=== PATIENT | female | born 1995 | race Caucasian/White ===

== ENCOUNTER 2022-05-26 07:42 | Emergency (ER) | payer OTHER, SELFPAY ==
--- NOTE | ~2022-05-26 | XR_ITS ---
XR shoulder LT min 2V DATE: 05/26/2022 08:18 INDICATION: Posterior left shoulder pain, limited range of motion. No known injury. TECHNIQUE: 4 views COMPARISON: None FINDINGS: No fracture, dislocation, periosteal reaction or bone destruction. Normal alignment at the acromioclavicular and glenohumeral joints. No abnormal soft tissue calcification. IMPRESSION: Negative Reviewed, dictated and finalized at location B. IMPRESSION: Negative
[2022-05-26 07:55] VITALS: BP 128/82; PULSE 93; RESP 20; TEMP 36.6; O2SAT 99
[2022-05-26] MEDS: IBUPROFEN 400 MG TABLET 800 MG PO (08:06)
--- NOTE | 2022-05-26 08:31 | ED.UPPEXIN ---
HPI - Extremity Injury (Upper) General Chief Complaint: Extremity Injury, Upper Stated Complaint: shoulder injury Time Seen by Provider: 05/26/22 07:47 Source: patient and RN notes reviewed Mode of arrival: ambulatory Limitations: no limitations History of Present Illness HPI narrative: This is a 26 year old female left hand dominant who presents for evaluation of left shoulder pain. She thinks she injured her shoulder on while working. 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 She has been having pain with lifting her left shoulder. Related Data Allergies Allergy/AdvReac Type Severity Reaction Status Date / Time No Known Allergies Allergy Verified 05/26/22 08:02 Review of Systems Review of Systems: All systems reviewed & are unremarkable except as noted in HPI and below PMFSH Past Medical History Medical History (Updated 05/26/22 @ 08:40 by Eva Holder MD) Patient denies medical problems Surgical History Surgical History (Updated 05/26/22 @ 08:36 by Eva Holder MD) No pertinent past surgical history Social History Social History (Updated 05/26/22 @ 08:36 by Eva Holder MD) Smoking status: Never smoker Exam Const: General: no acute distress and alert Orientation/consciousness: patient oriented x3 Limitations: no limitations HENMT: Head: normal to inspection Eyes: EOM: EOMs intact bilaterally Resp: Effort & Inspection: normal respiratory effort Skin: General skin exam: normal color Rashes: no rashes Wounds: no wounds Neuro: General: patient oriented x3, moves all extremities and CN's II-XI intact bilaterally Extrem: General: no clubbing, cyanosis or edema Other: pain with abduction of left shoulder, radial pulse present Psych: Mental Status: mental status grossly normal Affect: normal affect Attitude: cooperative Course Reevaluation(s) Reevaluation #1: I have discussed with patient that xray is unremarkable. I discussed she will need to follow up with PCP for possible PT and evaluation of pain does not resolve Date: 05/26/22 Time: 08:37 Vital Signs Vital signs: Vital Signs Temperature 97.8 F 05/26/22 07:55 Pulse Rate 93 05/26/22 07:55 Respiratory Rate 20 05/26/22 07:55 Blood Pressure 128/82 05/26/22 07:55 Pulse Oximetry 99 05/26/22 07:55 Oxygen Delivery Room Air 05/26/22 07:55 Temperature 97.9 F 05/26/22 09:07 Pulse Rate 92 05/26/22 09:07 Respiratory Rate 18 05/26/22 09:07 Blood Pressure 105/87 05/26/22 09:07 Pulse Oximetry 98 05/26/22 09:07 Oxygen Delivery Room Air 05/26/22 07:55 MDM - Extremity Injury (Upper) Imaging Data Radiologist's impression: ITS Impressions Shoulder X-Ray 05/26/22 08:20 IMPRESSION: Negative Discharge Plan Discharge Clinical Impression: Left shoulder strain Qualifiers: Encounter type: initial encounter Qualified Code(s): S46.912A - Strain of unspecified muscle, fascia and tendon at shoulder and upper arm level, left arm, initial encounter Patient Disposition: Home, Self-Care Condition: Stable Instructions: Antibiotic Form, How to Use a Sling (ED), Shoulder Pain (ED), Early Postoperative or Post Injury Shoulder Exercises (ED) Additional Instructions: Follow up with your primary care provider if you do not have improvement with your pain after 1 week. Prescriptions: New ibuprofen 800 mg tablet 800 mg PO TID PRN (Reason: pain) Qty: 20 0RF Follow-up/Referrals: Elia Bedoya M.D. [Primary Care Provider] -
[2022-05-26 09:07] VITALS: BP 105/87; PULSE 92; RESP 18; TEMP 36.6; O2SAT 98
== END 2022-05-26 09:09 | disposition home or self-care (01) ==
PROVIDERS: Emergency Provider General Practice; PCP Family Medicine
DX: S46.912A Strain of unspecified muscle, fascia and tendon at shoulder and upper arm level, left arm, initial encounter (principal); X50.3XXA Overexertion from repetitive movements, initial encounter
CPT/HCPCS: 73030; 99283; A4565; A9270

== ENCOUNTER 2022-06-25 06:33 | Emergency (ER) | payer OTHER, SELFPAY ==
[2022-06-25] VITALS (17 sets, daily range): BP systolic 114–129; BP diastolic 74–84; PULSE 78–100; RESP 17–18; TEMP 37; O2SAT 97–100
--- NOTE | ~2022-06-25 | CT_ITS ---
EXAMINATION: CT abdomen pelvis w con DATE: 06/25/2022 08:54 INDICATION: Right lower quadrant pain. Chills. Nausea and vomiting. TECHNIQUE: Computed tomography (CT) of the abdomen and pelvis was performed with 100 cc Omnipaque 350 intravenous contrast. The dose-length product was 1644.86 mGy-cm. Automated exposure control and ite rative reconstruction technique were employed. COMPARISON: None. FINDINGS: Lung bases are unremarkable. Heart size normal. No significant pleural or pericardial effus ion. No significant vascular abnormality. Small hiatal hernia. The liver, spleen, pancreas, adrenal g lands and kidneys are unremarkable. The appendix is normal. There are mildly increased number of ileo colic lymph nodes. No significant associated inflammatory changes. Nonobstructive bowel pattern. No a bnormal pelvic masses or fluid collections. No free air or free fluid. Small fat-containing umbilical hernia. IMPRESSION: 1. No acute abdominal abnormality. Normal appendix. Reviewed, dictated and finalized at location A.
--- NOTE | 2022-06-25 07:30 | ED.ABDPAIN ---
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 Chills. Related Data Allergies Allergy/AdvReac Type Severity Reaction Status Date / Time No Known Allergies Allergy Verified 05/26/22 08:02 Review of Systems Review of Systems: CONST: Chills HEENT: No sore throat C/V: No chest pain RESP: No cough GI: Reports abdominal pain, nausea : No dysuria. M/S: No joint pain. SKIN: No rash. NEURO: [No headache or focal numbness or weakness] PSYCH: [No depression] [facility] Past Medical History Medical History (Updated 06/25/22 @ 09:40 by Letitia Mcdaniels MD) Patient denies medical problems Surgical History Surgical History No pertinent past surgical history Social History Social History Smoking status: Never smoker Exam Narrative: EXAMINATION OF ORGAN SYSTEMS/BODY AREAS: Constitutional: Vital signs per nursing GENERAL: Appears slightly uncomfortable and anxious HEAD: Normal with no signs of head trauma. EYES: EOMI, conjunctiva normal ENT: Hearing grossly intact LUNGS: Nonlabored breathing. HEART: [Regular rate and rhythm] ABD: [Soft], minimally tender to palpation right lower quadrant EXT: Normal range of motion SKIN: [No rashes or lesions.] NEURO: [Alert and oriented x 3. No gross focal sensory or strength deficits.] PSYCH: Slightly anxious affect Course Vital Signs Vital signs: Vital Signs Temperature 98.6 F 06/25/22 06:36 Pulse Rate 100 06/25/22 06:36 Respiratory Rate 18 06/25/22 06:36 Blood Pressure 129/79 06/25/22 06:36 Pulse Oximetry 100 06/25/22 06:36 Oxygen Delivery Room Air 06/25/22 06:36 Temperature 98.6 F 06/25/22 06:36 Pulse Rate 100 06/25/22 06:36 Respiratory Rate 18 06/25/22 06:36 Blood Pressure 119/83 06/25/22 08:00 Pulse Oximetry 99 06/25/22 08:01 Oxygen Delivery Room Air 06/25/22 06:36 MDM - Abdominal Pain MDM Narrative Medical decision making narrative: Electronic medical record was reviewed. Patient presented to the ED with complaint of [abdominal pain RLQ radiating to back and nausea]. Vitals [were within acceptable limits]. Physical exam revealed soft abdomen, with minimal TTP RLQ. Based on the patient's history and physical exam, my differential includes but is not limited to [gastroenteritis, appendicitis, UTI, calculus], doubt ovarian torsion without severe pelvic pain. [IV access was established by nursing staff. Patient was given zofran, morphine]. CBC, BMP, lipase, LFTs, bilirubin and alk phos were obtained. Labs were pertinent for some calcium oxalate crystals on urine, otherwise negative. [Decision was made to obtain a CT-abdomen to evaluate for acute abdominal process. CT-abdomen per my, attending, and radiology interpretation is unremarkable for acute intra-abdominal process, no signs of hydronephrosis, cholecystitis, appendicitis, no concerning pelvic masses or free fluid.] On reevaluation, the patient states that they are feeling better. There were no witnessed episodes of vomiting in the emergency department. They are not complaining of any new abdominal pain. Repeat examination did not show any significant guarding or rebound. No new tenderness. At this time I do not feel there is any further emergent treatment to be provided. The patient was given strict return precautions, if they are to develop any worsening abdominal pain, vomiting, or blood in the vomit they are to return to the emergency department immediately. Patient verbally acknow
[2022-06-25] MEDS: MORPHINE SULFATE (*CRX) 4 MG/ML INJ IV PUSH (07:47)
[2022-06-25] MEDS: ONDANSETRON INJ 4 MG/2 ML VIAL IV PUSH (07:47)
[2022-06-25] MEDS: LACTATED RINGERS 1,000 ML 999 ML IV CONT (07:48)
[2022-06-25 07:49] LABS: Basophils Percent Auto 0.5 % (0.2-1.2); Eosinophils Absolute Auto 0.2 K/mm3 (0-0.3); Eosinophils Percent Auto 2.2 % (0-4.4); Hematocrit 40.5 % (37.0-47.0); Immature Granulocyte Absolute 0.02 K/mm3 (0.00-0.031); Immature Granulocyte Percent A 0.3 % (0-0.5); Lymphocytes Absolute Auto 2.55 K/mm3 (0.9-3.2); Lymphocytes Percent Auto 34.6 % (18.3-44.2); Mean Corpuscular HGB Conc 32.1 g/dl (32-36); Mean Corpuscular Hemoglobin 28.2 pg (26-34); Mean Corpuscular Volume 87.9 fl (80-100); Mean Platelet Volume 9.8 fl (7.4-10.4); Monocytes Absolute Auto 0.5 K/mm3 (0.1-0.6); Monocytes Percent Auto 6.8 % (2.6-8.5); Neutrophils Absolute Auto 4.1 K/mm3 (1.3-6.7); Neutrophils Percent Auto 55.6 % (45.5-73.1); Platelet Count Result 255 k/mm3 (150-375); Red Blood Count 4.61 M/mm3 (4.2-5.4); Red Cell Distribution Width 12.3 % (11.5-14.5); White Blood Count 7.4 K/mm3 (4.5-10.0)
[2022-06-25 08:01] LABS: Alanine Aminotransferase 24 U/L (6-35); Albumin Level 4.4 g/dL (3.5-5.1); Alkaline Phosphatase 102 U/L (38-126); Anion Gap 5 mmol/L (8-16); Aspartate Amino Transferase 28 U/L (14-36); Bilirubin,Total 0.6 mg/dL (0.2-1.3); Blood Urea Nitrogen 11 mg/dL (7-17); Calcium 8.8 mg/dL (8.4-10.2); Carbon Dioxide 29 mmol/L (22-30); Chloride 105 mmol/L (98-107); Estimated CRCL calculation 129 ml/min; Estimated Glomerular Filt Rate > 60; Glucose 93 mg/dL (65-110); Lipase 84 U/L (23-300); Potassium 4.2 mmol/L (3.4-5.0); Sodium 139 mmol/L (137-145)
[2022-06-25 08:30] LABS: Appearance Urine Cloudy (Clear); Bacteria Urine 2+ /hpf; Bilirubin Urine Negative (Negative); Blood Urine Negative (Negative); Calcium Oxalate Crystals Urine Present /hpf; Color Urine Yellow (Yellow); Glucose Urine UA Negative (Negative); Ketones Urine Trace mg/dL (Negative); Leukocyte Esterase Ur Negative LEU/UL (Negative); Mucus Urine Present /lpf; Nitrate Urine Negative (Negative); Non Pathogenic Casts 0-2; Protein Urine Trace mg/dL (Negative); RBC Urine 0-2 /hpf (0-2); Squamous Epithelial Cell Urine Moderate /hpf (Few); WBC Urine 0-5 /hpf
[2022-06-25 08:31] LABS: Add Urine Microscopic? YES; Specific Grav Ur 1.036 (1.001-1.035)
[2022-06-25] MEDS: KETOROLAC 15 MG/ML VIAL (*BKC) IV PUSH (09:31)
== END 2022-06-25 10:07 | disposition home or self-care (01) ==
PROVIDERS: Emergency Provider Emergency Medicine; PCP Family Medicine
DX: R10.31 Right lower quadrant pain (principal)
CPT/HCPCS: 36415; 74177; 80053; 81001; 81025; 83690; 85025; 96361; 96374; 96375; 99284; J1885; J2270; J2405; J7120; Q9967

== ENCOUNTER 2022-08-31 02:23 | Emergency (ER) | payer OTHER, SELFPAY ==
--- NOTE | ~2022-08-31 | US_ITS ---
Pelvic ultrasound. Clinical History: First trimester , evaluate for ectopic Technique: Realtime transabdominal scanning of the pelvis was performed. Color flow Doppler and Doppl er spectral analysis were performed. Findings: The uterus is anteverted, and contains an intrauterine gestation. [place]-rump length of 1.0 cm corresponds to an estimated gestational age of 7 weeks 1 day. heart rate is 134 bpm.. The right ovary measures 3.8 x 1.8 x 2.4 cm. No significant right ovarian or adnexal mass is seen. The left ovary is not visualized. No significant left ovarian or adnexal mass is seen. There is no evidence of free fluid in the cul de sac. Impression: Live intrauterine gestation with estimated gestational age of 7 weeks 1 day. heart rate is 134 bpm. Reviewed, dictated and finalized at [facility]. Impression: Live intrauterine gestation with estimated gestational age of 7 weeks 1 day. Fe ritesh heart rate is 134 bpm.
[2022-08-31 02:27] VITALS: BP 127/73; PULSE 89; RESP 18; TEMP 36.4; O2SAT 100
--- NOTE | 2022-08-31 02:50 | ED.GENADULT ---
HPI - General Adult General Chief complaint: Abdominal Pain Stated complaint: RLQ abd pain, 7 weeks Time Seen by Provider: 08/31/22 02:34 History of Present Illness HPI narrative: This is a 27-year-old presenting at 7 weeks gestation for right lower quadrant pain. 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 It is a dull pain that radiates to her back, 4/10 in intensity and constant. She has taken Tylenol with some relief. She says she experienced similar pain 2 months ago and it resolved after several days. Patient has had some nausea but denies fever, chills, vomiting, diarrhea, chest pain difficulty breathing, vaginal bleeding or irritation. No urinary symptoms. Related Data Allergies Allergy/AdvReac Type Severity Reaction Status Date / Time No Known Allergies Allergy Verified 05/26/22 08:02 [facility] Past Medical History Medical History Patient denies medical problems Surgical History Surgical History No pertinent past surgical history Social History Social History Smoking status: Never smoker Exam Narrative: APPEARANCE: No apparent distress. Head: atraumatic. EYES: EOMI, NOSE: Atraumatic NECK: Trachea midline RESPIRATORY: No increased rate of breathing CARDIOVASCULAR: RRR, ABDOMINAL: Obese, mild tenderness to palpation in the right lower quadrant, no guarding no rebound MUSCULOSKELETAl: No obvious deformities NEURO: Alert. Moving 4/4 extremities SKIN:: Warm, dry. Normal color PSYCHIATRIC: Normal affect Course Vital Signs Vital signs: Vital Signs Temperature 97.6 F 08/31/22 02:27 Pulse Rate 89 08/31/22 02:27 Respiratory Rate 18 08/31/22 02:27 Blood Pressure 127/73 08/31/22 02:27 Pulse Oximetry 100 08/31/22 02:27 Temperature 97.6 F 08/31/22 02:27 Pulse Rate 89 08/31/22 02:27 Respiratory Rate 18 08/31/22 02:27 Blood Pressure 127/73 08/31/22 02:27 Pulse Oximetry 100 08/31/22 02:27 Medical Decision Making MDM Narrative Medical decision making narrative: -Presentation: 27-year-old female presented 7 weeks with right lower quadrant pain. 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 At that time CT was performed which was negative for appendicitis. -Hx from independent Sources: None -Independent interpretation of studies: CBC normal. Metabolic panel normal. Urine not indicative of infection. ultrasound showed a intrauterine dated at 7 weeks 1 day with a heart rate of 134. no mention of his cyst on the right ovary that the patient was aware of. -Discussion of Management/Consultants: None -Dx tests considered but not ordered: CT abdomen pelvis to evaluate for appendicitis, patient is afebrile with no white count and has had pain similar to this in the past. Will take a watch and see approach and if the patient develops fevers or severe abdominal pain she should return immediately for re-evaluation. -Procedures: none -Interventions: 1000 mg Tylenol -Shared decision making / Disposition: Discharged with OBGYN follow-up. -RX Vital Signs Vital Signs: Vital Signs Temperature 97.6 F 08/31/22 02:27 Pulse Rate 89 08/31/22 02:27 Respiratory Rate 18 08/31/22 02:27 Blood Pressure 127/73 08/31/22 02:27 Pulse Oximetry 100 08/31/22 02:27 Temperature 97.6 F 08/31/22 02:27 Pulse Rate 89 08/31/22 02:27 Respiratory Rate 18 08/31/22 02:27 Blood Pressure 12
[2022-08-31 03:22] LABS: Basophils Percent Auto 0.4 % (0.2-1.2); Eosinophils Absolute Auto 0.1 K/mm3 (0-0.3); Eosinophils Percent Auto 1.7 % (0-4.4); Hemoglobin 12.6 g/dL (12.0-15.0); Immature Granulocyte Absolute 0.01 K/mm3 (0.00-0.031); Immature Granulocyte Percent A 0.1 % (0-0.5); Lymphocytes Absolute Auto 2.22 K/mm3 (0.9-3.2); Lymphocytes Percent Auto 31.2 % (18.3-44.2); Mean Corpuscular HGB Conc 30.7 g/dl (32-36); Mean Corpuscular Hemoglobin 27.9 pg (26-34); Mean Corpuscular Volume 90.7 fl (80-100); Mean Platelet Volume 10.3 fl (7.4-10.4); Monocytes Absolute Auto 0.6 K/mm3 (0.1-0.6); Neutrophils Absolute Auto 4.1 K/mm3 (1.3-6.7); Neutrophils Percent Auto 57.6 % (45.5-73.1); Platelet Count Result 255 k/mm3 (150-375); Red Blood Count 4.52 M/mm3 (4.2-5.4); Red Cell Distribution Width 12.5 % (11.5-14.5); White Blood Count 7.1 K/mm3 (4.5-10.0)
[2022-08-31 03:35] LABS: Appearance Urine Clear (Clear); Bacteria Urine None Seen /hpf; Bilirubin Urine Negative (Negative); Blood Urine Negative (Negative); Color Urine Yellow (Yellow); Glucose Urine UA Negative (Negative); Ketones Urine Negative (Negative); Leukocyte Esterase Ur Negative LEU/UL (Negative); Nitrate Urine Negative (Negative); Non Pathogenic Casts 0-2; Protein Urine Trace mg/dL (Negative); RBC Urine 0-2 /hpf (0-2); Squamous Epithelial Cell Urine Occasional /hpf (Few); WBC Urine 0-5 /hpf; pH Urine 5.5 (5.0-9.0)
[2022-08-31 03:37] LABS: Anion Gap 8 mmol/L (8-16); Blood Urea Nitrogen 11 mg/dL (7-17); Calcium 9.2 mg/dL (8.4-10.2); Carbon Dioxide 24 mmol/L (22-30); Chloride 104 mmol/L (98-107); Estimated CRCL calculation 150 ml/min; Estimated Glomerular Filt Rate > 60; Glucose 98 mg/dL (65-110); Potassium 3.9 mmol/L (3.4-5.0); Sodium 136 mmol/L (137-145)
[2022-08-31 03:41] LABS: Add Urine Microscopic? YES; Specific Grav Ur 1.039 (1.001-1.035)
[2022-08-31 04:02] LABS: Beta HCG Quantitative > 15000.00 mIU/ML
[2022-08-31 06:14] VITALS: BP 149/83; PULSE 87; RESP 14; O2SAT 100
== END 2022-08-31 06:17 | disposition home or self-care (01) ==
PROVIDERS: Emergency Provider Emergency Medicine; PCP Family Medicine
DX: O26.891 Other specified pregnancy related conditions, first trimester (principal); R10.31 Right lower quadrant pain; Z3A.01 Less than 8 weeks gestation of pregnancy
CPT/HCPCS: 36415; 76801; 80048; 81001; 81025; 84702; 85025; 86850; 86900; 86901; 99284

== ENCOUNTER 2022-10-22 05:42 | Observation (INO) | payer OTHER, SELFPAY ==
[2022-10-22] VITALS (41 sets, daily range): BP systolic 101–147; BP diastolic 48–90; PULSE 76–107; RESP 20–22; TEMP 36.5; O2SAT 95–100; BMI 44.9
--- NOTE | ~2022-10-22 | XR_ITS ---
EXAMINATION: XR chest 2V DATE: 10/22/2022 08:48 INDICATION: Right-sided chest and upper abdominal pain. TECHNIQUE: PA and lateral views of the chest were obtained. COMPARISON: Chest radiograph dated 02/03/2022 FINDINGS: The lungs remain clear with no focal airspace opacities, pulmonary edema, pleural effusion or pneumot horax. The cardiomediastinal silhouette is normal. Visualized bones and soft tissues are unremarkable . IMPRESSION: 1. No acute cardiopulmonary disease. Reviewed, dictated and finalized at location A.
--- NOTE | ~2022-10-22 | CT_ITS ---
EXAMINATION: CTA chest PE protocol DATE: 10/22/2022 10:55 INDICATION: Chest pain with inspiration. Right upper quadrant abdominal pain. 15 weeks . TECHNIQUE: Computed tomography angiography (CTA) of the chest was performed with 100 mL Omnipaque-350 intravenous contrast timed to evaluate the pulmonary arteries. Coronal maximum intensity projection 3D-reconstructions were created by the technologist. Automated exposure control and iterative reconst ruction technique were employed. The dose-length product was 871.45 mGy-cm. COMPARISON: Abdomen ultrasound 10/22/2022 FINDINGS: The lungs demonstrate mild atelectasis. No pleural effusion. The heart size is normal. No p ericardial effusion. There is a small sliding hiatal hernia. No pulmonary embolus. The gallbladder is distended, likely secondary to fasting. There is mild thoracic spondylosis. IMPRESSION: 1. No pulmonary embolus. 2. Small sliding hiatal hernia. Reviewed, dictated and finalized at location A.
--- NOTE | ~2022-10-22 | US_ITS ---
EXAMINATION: US renal BI DATE: 10/22/2022 15:04 INDICATION: RIGHT FLANK PAIN TECHNIQUE: Multiple grayscale and Doppler ultrasound images of the kidneys were obtained. COMPARISON: None. FINDINGS: The right kidney measures 8.7 x 4.7 x 5.3 cm. The left kidney measures 10.1 x 4.6 x 5.8 cm. The kidne ys demonstrate normal parenchymal echogenicity. There is no hydronephrosis. The bladder is normal. IMPRESSION: Unremarkable renal sonogram findings. Reviewed, dictated and finalized at location K.
--- NOTE | ~2022-10-22 | US_ITS ---
EXAMINATION: US abdomen limited DATE: 10/22/2022 07:47 INDICATION: Right flank pain. 15 weeks . TECHNIQUE: Multiple grayscale and Doppler ultrasound images of the abdomen were obtained. COMPARISON: CT abdomen and pelvis 06/25/2022 FINDINGS: The visualized portions of the head, body, and tail of the pancreas are normal. The liver i s normal without focal lesion. There is normal flow in main portal vein. The gallbladder is normal in size. No gallstones or gallbladder wall thickening. There is no sonographic Tamayo sign. The common duct is normal and measures 6 mm. IMPRESSION: 1. Normal right upper quadrant ultrasound. Reviewed, dictated and finalized at location A.
[2022-10-22 06:58] LABS: Basophils Percent Auto 0.4 % (0.2-1.2); Eosinophils Absolute Auto 0.2 K/mm3 (0-0.3); Eosinophils Percent Auto 2.1 % (0-4.4); Hemoglobin 13.2 g/dL (12.0-15.0); Immature Granulocyte Absolute 0.02 K/mm3 (0.00-0.031); Immature Granulocyte Percent A 0.2 % (0-0.5); Lymphocytes Absolute Auto 2.94 K/mm3 (0.9-3.2); Lymphocytes Percent Auto 31.8 % (18.3-44.2); Mean Corpuscular HGB Conc 31.4 g/dl (32-36); Mean Corpuscular Hemoglobin 27.9 pg (26-34); Mean Corpuscular Volume 88.8 fl (80-100); Mean Platelet Volume 10.1 fl (7.4-10.4); Monocytes Absolute Auto 0.7 K/mm3 (0.1-0.6); Monocytes Percent Auto 7.4 % (2.6-8.5); Neutrophils Absolute Auto 5.4 K/mm3 (1.3-6.7); Neutrophils Percent Auto 58.1 % (45.5-73.1); Platelet Count Result 258 k/mm3 (150-375); Red Blood Count 4.73 M/mm3 (4.2-5.4); Red Cell Distribution Width 12.6 % (11.5-14.5); White Blood Count 9.3 K/mm3 (4.5-10.0)
[2022-10-22 07:08] LABS: Alanine Aminotransferase 30 U/L (6-35); Alkaline Phosphatase 91 U/L (38-126); Anion Gap 6 mmol/L (8-16); Aspartate Amino Transferase 30 U/L (14-36); Bilirubin,Total 0.2 mg/dL (0.2-1.3); Blood Urea Nitrogen 9 mg/dL (7-17); Carbon Dioxide 25 mmol/L (22-30); Chloride 102 mmol/L (98-107); Estimated CRCL calculation 149 ml/min; Estimated Glomerular Filt Rate > 60; Glucose 91 mg/dL (65-110); Lipase 121 U/L (23-300); Potassium 4.4 mmol/L (3.4-5.0); Sodium 133 mmol/L (137-145)
--- NOTE | 2022-10-22 07:15 | PC.NURSE ---
Assumed care of patient from ESTRELLITA Garcia at this time.
--- NOTE | 2022-10-22 07:22 | PC.NURSE ---
Pt to US at this time. Will give meds when pt returns.
[2022-10-22 07:28] LABS: Appearance Urine Cloudy (Clear); Bacteria Urine Rare /hpf; Bilirubin Urine Negative (Negative); Blood Urine Negative (Negative); Color Urine Yellow (Yellow); Glucose Urine UA Negative (Negative); Ketones Urine Negative (Negative); Leukocyte Esterase Ur Negative LEU/UL (Negative); Nitrate Urine Negative (Negative); Non Pathogenic Casts 0-2; Protein Urine 1+ mg/dL (Negative); RBC Urine 0-2 /hpf (0-2); Specific Grav Ur 1.032 (1.001-1.035); Squamous Epithelial Cell Urine Moderate /hpf (Few); Urobilinogen Urine 0.2 mg/dL (<2.0); pH Urine 5.5 (5.0-9.0)
[2022-10-22 07:36] LABS: Add Urine Microscopic? YES
--- NOTE | 2022-10-22 07:52 | ED.ABDPAIN ---
HPI - Abdominal Pain General Chief Complaint: Abdominal Pain Stated Complaint: abd pain Time Seen by Provider: 10/22/22 07:01 Source: patient and RN notes reviewed Mode of arrival: ambulatory Limitations: no limitations History of Present Illness HPI narrative: This is a 27 year old female 15 weeks GA who presents for evaluation of right flank pain. She reports she ate [employer] around midnight and she developed pain at 1 am. She reports pain has been constant and worse with moving. She noticed severe pain when she was bending over. Her pain has been constant and sharp. She has no been able to take any medication for pain. She denies history gallstone or gallbladder disease. She denies any urinary complaints. She denies any issues with this . Her OB is located in [place]. Related Data Home Medications Medication Instructions Recorded Confirmed vit no.95-ferrous 1 tablet PO DAILY 10/22/22 10/22/22 fumarate 28 mg-folic acid 800 mcg tablet () Allergies Allergy/AdvReac Type Severity Reaction Status Date / Time No Known Allergies Allergy Verified 05/26/22 08:02 Review of Systems Constitutional: Constitutional: Denies weakness Cardiovascular: Cardiovascular: Denies syncope, Denies rapid heart rate, Denies irregular heart rhythm, Denies leg edema and Denies dyspnea Respiratory: Respiratory: Denies chest congestion, Denies hemoptysis, Denies excessive phlegm production and Denies dyspnea Gastrointestinal: Gastrointestinal: Reports abdominal pain, Denies hematochezia, Denies diarrhea and Denies vomiting Genitourinary: Genitourinary: Denies hematuria and Denies dysuria Musculoskeletal: Musculoskeletal: Denies joint swelling, Denies loss of height and Denies muscle weakness Neurologic: Denies syncope, Denies focal weakness and Denies weakness [facility] Past Medical History Medical History Patient denies medical problems Surgical History Surgical History No pertinent past surgical history Social History Social History Smoking status: Never smoker Exam Const: General: alert Nutritional Appearance: obese Orientation/consciousness: patient oriented x3 HENMT: Head: normal to inspection Eyes: EOM: EOMs intact bilaterally Neck: Neck: normal visual inspection Resp: Effort & Inspection: normal respiratory effort Auscultation: clear to auscultation bilaterally Cardio: Rate: regular rate Rhythm: regular rhythm GI: GI Palp: Yes Soft to palpation, Yes Tenderness to palpation present (GI) (right flank), No Guarding due to palpation present (GI) and No Rigid due to palpation Auscultation: normal bowel sounds Back/Spine/Pelvis: Back: no CVA tenderness Skin: General skin exam: normal color Rashes: no rashes Wounds: no wounds Neuro: General: patient oriented x3, moves all extremities and CN's II-XI intact bilaterally Extrem: General: normal to inspection Psych: Mental Status: mental status grossly normal Affect: normal affect Attitude: cooperative Course Reevaluation(s) Reevaluation #1: I discussed with patient d dimer elevated. This may be due to but given her pleuritic pain we should rule out PE. I discussed CTA vs VQ scan with higher radiation risk. She wants to get CTA given more detailed test. She understands risk. Date: 10/22/22 Time: 10:33 Reevaluation #2: PAtient reports her pain is better. I discussed that we have rule out PE, pneumonia, gallstones, cholecystitis pyelonephritis . She states she does not want to go home . I discussed I could send her home with pain medication but she states she would prefer to be admit to OB for pain control. Date: 10/22/22 Time: 12:35 Consultations Consultation #1: I spoke with Dr. Serra about patient case. He states patient ca
[2022-10-22] MEDS: SODIUM CHLORIDE 0.9% IV 1,000 ML 999 ML IV CONT (07:57)
[2022-10-22] MEDS: ONDANSETRON INJ 4 MG/2 ML VIAL IV PUSH (07:57)
[2022-10-22] MEDS: MORPHINE SULFATE (*CRX) 4 MG/ML INJ IV PUSH (07:58)
[2022-10-22 09:36] LABS: INR 0.9
[2022-10-22 09:37] LABS: Partial Thromboplastin Time 26.7 SECONDS (22.3-36.8)
[2022-10-22] MEDS: ACETAMINOPHEN 500 MG TABLET 1000 MG PO (09:41)
[2022-10-22] MEDS: MORPHINE SULFATE (*CRX) 4 MG/ML INJ 6 MG IV PUSH (09:42)
[2022-10-22 10:08] LABS: D Dimer 0.76 ug/mL (<0.48)
--- NOTE | 2022-10-22 14:04 | PC.NURSE ---
1330: RN unable to obtain heart tones with doppler at this time. 1400: Dr. Serra phoned in for update. RN reported patient's complaints of heartburn and pain in her right side (into rib cage) that is constant dull pain that becomes sharp during deep breaths and movement. Orders to give milk of magnesium PO, [place] 5 once, give patient a heating pad, and order a renal ultrasound.
[2022-10-22] MEDS: HYDROcodone/acetaminophen (*CRX) 5-325 MG TABLET 1 TAB PO (14:15)
[2022-10-22] MEDS: MAGNESIUM HYDROXIDE SUSP 30 ML UDC PO (14:15)
--- NOTE | 2022-10-22 15:25 | PC.NURSE ---
1520: FHT assessed. FHT baseline of 135 obtained by RN.
--- NOTE | 2022-10-22 15:29 | OBADM ---
This patient, Argelia Galan, admitted to the OB room OB [facility] for observation. Patient/family oriented to hospital policies and general routines including ID bracelet, bed and alarms, visiting hours, pain management, procedures, bathroom and other care routines, personal items, smoking policy, room service/diet, and visiting hours. Patient/Family are encouraged to report perceived risks to care and to ask questions if they do not understand what they are told or what they should do.
--- NOTE | 2022-10-22 15:39 | PC.NURSE ---
1314: Dr. Serra phoned in for status. RN informed OB of renal US results and patient's pain. OB ordered to obtain FHT via doppler and offer patient to go home with enough [place] 5 to get her through the weekend with instructions to call her OB in [place] on Tuesday. 1335: Patient states she does not want to go home without consulting with her , her is on his way to the hospital now. OB informed of patient's statement.
--- NOTE | 2022-10-22 17:30 | PC.NURSE ---
1659: Patient discharge is completed. Patient is waiting on ride home. 1730: RN went in to see if patient left yet. Patient was asleep in bed.
--- NOTE | 2022-10-25 14:48 | P.PNOB_ITS ---
OB - Triage/Final Diagnosis Visit Information Reason for evaluation: other ( right upper quadrant the musculoskeletal pain) Comments/Additional reasons for admission: I have assessed the risk for this patient, Argelia Galan, and determined that she would benefit from observation care. Evaluation Laboratory results: Laboratory Tests 10/22/22 10/22/22 06:40 07:17 WBC 9.3 RBC 4.73 Hgb 13.2 Hct 42.0 MCV 88.8 MCH 27.9 MCHC 31.4 L RDW 12.6 Plt Count 258 MPV 10.1 Immature Gran % (Auto) 0.2 Neut % (Auto) 58.1 Lymph % (Auto) 31.8 [place] % (Auto) 7.4 Eos % (Auto) 2.1 Baso % (Auto) 0.4 Lymph # (Auto) 2.94 [place] # (Auto) 0.7 H Eos # (Auto) 0.2 Baso # (Auto) 0.0 Abs Immat Gran (auto) 0.02 Absolute Neuts (auto) 5.4 Absolute Nucleated RBC 0.0 Nucleated RBC % 0.0 PT 12.0 INR 0.9 APTT 26.7 D-Dimer 0.76 H Sodium 133 L Potassium 4.4 Chloride 102 Carbon Dioxide 25 Anion Gap 6 L BUN 9 Creatinine 0.70 Estim Creat Clear Calc 149 Estimated GFR > 60 Glucose 91 Calcium 9.0 Total Bilirubin 0.2 AST 30 ALT 30 Alkaline Phosphatase 91 Total Protein 8.0 Albumin 4.0 Lipase 121 Urine Color Yellow Urine Appearance Cloudy H Urine pH 5.5 Ur Specific [place] 1.032 Urine Protein 1+ H Urine Glucose (UA) Negative Urine Ketones Negative Ur Blood (Man) Negative Urine Nitrate Negative Urine Bilirubin Negative Urine Urobilinogen 0.2 Leukocyte Esterase Rfl Negative Urine RBC 0-2 Urine WBC 6-10 H Ur Squamous Epith Cells Moderate Urine Bacteria Rare Urine Casts 0-2
== END 2022-10-22 17:37 | disposition home or self-care (01) ==
LOC: ANHED 07:01 → ANHOBPP 13:10
PROVIDERS: Emergency Medicine; Admitting Provider Obstetrics & Gynecology; Emergency Provider General Practice; PCP Family Medicine; Visit Provider Obstetrics & Gynecology
DX: O26.899 Other specified pregnancy related conditions, unspecified trimester (principal); R10.11 Right upper quadrant pain; O99.612 Diseases of the digestive system complicating pregnancy, second trimester; K44.9 Diaphragmatic hernia without obstruction or gangrene; R79.1 Abnormal coagulation profile; Z3A.15 15 weeks gestation of pregnancy
CPT/HCPCS: 36415; 71046; 71275; 76705; 76775; 80053; 81001; 83690; 85025; 85380; 85610; 85730; 87086; 87088; 96361; 96374; 96375; 96376; 99285; A9270; G0378; G0379; J2270; J2405; J7030; Q9967

== ENCOUNTER 2023-01-05 07:57 | Outpatient (CLI) | payer OTHER, SELFPAY ==
--- NOTE | ~2023-01-05 | NM_ITS ---
EXAMINATION: NM hepatobiliary wo pharm DATE: 01/05/2023 11:30 INDICATION: Chronic right upper quadrant abdominal pain. COMPARISON: Ultrasound 01/05/2023 TECHNIQUE: 3.1 mCi Tc-99m mebrofenin (Choletec) was administered intravenously. Scintigraphic images of the abdomen were obtained for one hour. Then, the patient drank 8 oz Ensure, and imaging was cont inued for 60 minutes. FINDINGS: There is normal clearance of radiotracer from the blood pool. There is homogeneous tracer u ptake by the liver. Activity progresses to the bowel and gallbladder. Gallbladder ejection fraction (GBEF) was 42%. Note that with this technique, normal GBEF >= 33%. IMPRESSION: 1. Normal hepatobiliary scintigraphy. Reviewed, dictated and finalized at location E.
--- NOTE | ~2023-01-05 | US_ITS ---
US abdomen limited INDICATION: Chronic right upper quadrant pain PROCEDURE: Realtime right upper abdominal ultrasound. COMPARISON: No prior studies for comparison. FINDINGS: The pancreas is normal without focal mass or pancreatic ductal dilation. Liver echotexture is increased, consistent with fatty infiltration. There is normal directional flow in the portal ve in. The gallbladder is normal without stones, gallbladder wall thickening or pericholecystic fluid. Comm on bile duct measures 6.9 mm. No sonographic Tamayo's sign. IMPRESSION: 1: Hepatic steatosis. Reviewed, dictated and finalized at location B. IMPRESSION: 1: Hepatic steatosis.
== END 2023-01-05 07:58 | disposition home or self-care (01) ==
PROVIDERS: PCP Family Medicine
DX: R10.11 Right upper quadrant pain (principal); K76.0 Fatty (change of) liver, not elsewhere classified
CPT/HCPCS: 76705; 78226; A9537

== ENCOUNTER 2023-01-14 00:24 | Observation (INO) | payer OTHER, SELFPAY ==
[2023-01-14 00:49] VITALS: BP 121/65; PULSE 95
[2023-01-14 00:51] VITALS: BMI 45.6
[2023-01-14 00:57] VITALS: BP 121/65; PULSE 92; RESP 18; TEMP 36.3; O2SAT 99
[2023-01-14 01:10] VITALS: BP 121/65; PULSE 92; RESP 18; TEMP 36.3; O2SAT 99
--- NOTE | 2023-01-14 01:17 | OBADM ---
This patient, Argelia Galan, admitted to the OB room [facility] for observation. Patient/family oriented to hospital policies and general routines including ID bracelet, bed and alarms, visiting hours, pain management, procedures, bathroom and other care routines, personal items, smoking policy, room service/diet, and visiting hours. Patient/Family are encouraged to report perceived risks to care and to ask questions if they do not understand what they are told or what they should do.
[2023-01-14 02:59] LABS: Appearance Urine Cloudy (Clear); Bacteria Urine None Seen /hpf; Bilirubin Urine Negative (Negative); Blood Urine Negative (Negative); Color Urine Yellow (Yellow); Glucose Urine UA Negative (Negative); Ketones Urine Negative (Negative); Leukocyte Esterase Ur Trace LEU/UL (Negative); Nitrate Urine Negative (Negative); Non Pathogenic Casts 0-2; Protein Urine Trace mg/dL (Negative); Specific Grav Ur 1.026 (1.001-1.035); Squamous Epithelial Cell Urine Few /hpf (Few); Uric Acid Crystals Urine Present /hpf; Urobilinogen Urine 0.2 mg/dL (<2.0); pH Urine 5.5 (5.0-9.0)
[2023-01-14 03:04] LABS: Add Urine Microscopic? YES
--- NOTE | 2023-02-13 20:58 | PM.OBTRLD ---
OB - Triage/Final Diagnosis Visit Information Comments/Additional reasons for admission: I have assessed the risk for this patient, Argelia Galan, and determined that she would benefit from observation care. Evaluation Laboratory results: Laboratory Tests 01/14/23 01:53 Urine Color Yellow Urine Appearance Cloudy H Urine pH 5.5 Ur Specific [place] 1.026 Urine Protein Trace Urine Glucose (UA) Negative Urine Ketones Negative Ur Blood (Man) Negative Urine Nitrate Negative Urine Bilirubin Negative Urine Urobilinogen 0.2 Leukocyte Esterase Rfl Trace H Urine RBC 3-5 H Urine WBC 6-10 H Ur Squamous Epith Cells Few Uric Acid Crystals Present H Urine Bacteria None seen Urine Casts 0-2 Final Diagnosis (1) Pelvic pain: Code(s): R10.2 - Pelvic and perineal pain Status: Acute
== END 2023-01-14 03:30 | disposition home or self-care (01) ==
PROVIDERS: Admitting Provider Obstetrics & Gynecology; PCP Family Medicine; Visit Provider Obstetrics & Gynecology
DX: O26.892 Other specified pregnancy related conditions, second trimester (principal); R10.2 Pelvic and perineal pain; Z3A.27 27 weeks gestation of pregnancy
CPT/HCPCS: 81001; 87086; 87088; G0378; G0379